=== PATIENT | male | born 1980 | race Caucasian/White ===

== ENCOUNTER 2018-06-28 09:20 | Emergency (ER) | payer MEDICAID ==
[~2018-06-28] VITALS: Ht 175.3 cm; Wt 88.5 kg
[2018-06-28 09:24] VITALS: BP 131/82
--- NOTE | 2018-06-28 09:49 | NUR ---
Patient discharged to home in stable condition. Written and verbal after care instructions given. Patient verbalizes understanding of instruction.
== END 2018-06-28 09:50 | disposition home or self-care (01) ==
LOC: ER 09:22
DX: J02.9 Acute pharyngitis, unspecified (principal); Z86.19 Personal history of other infectious and parasitic diseases
CPT/HCPCS: Z7502